=== PATIENT | female | born 1980 | race Asian ===

== ENCOUNTER 2016-03-19 07:34 | Inpatient (IN) | payer OTHER ==
[2016-03-19] MEDS ORDERED: Dinoprostone* 10 MG VAG.SUPP VAGINAL ONE (09:30)
[2016-03-19 10:55] LABS: Hematocrit 34 % (35-47); Hemoglobin 11.5 g/dl (12.0-16.0); Mean Corpuscular HGB Conc 34 g/dl (31-36); Mean Corpuscular Hemoglobin 33 pg (27-31); Mean Corpuscular Volume 96 fL (80-97); Mean Platelet Volume 8 um3 (7.4-10.4); Red Blood Count 3.55 10^6/ul (4.0-5.4); Red Cell Distribution Width 14 % (10.5-15); White Blood Count 6.1 10^3/ul (3.5-10.8)
[2016-03-19 11:31] LABS: Albumin 3.1 g/dL (3.2-5.2); BUN/Creatinine Ratio 19.1 (8-20); Calcium 9.1 mg/dL (8.6-10.3); EGFR African American 193.9 (>60); EGFR Non-African American 150.8 (>60); Globulin 2.6 g/dL (2-4); Potassium 3.8 mmol/L (3.5-5.0); Total Bilirubin 0.4 mg/dL (0.2-1.0); Total Protein 5.7 g/dL (6.4-8.9)
[2016-03-19] MEDS ORDERED: Insulin NPH(*) 1 UNITS UNIT SUBCUT SCH (21:00)
[2016-03-20] MEDS ORDERED: Misoprostol TAB* 100 MCG VAGINAL ONE (10:00)
[2016-03-20] MEDS ORDERED: Oxytocin in LR* 20 UNITS/1,000 ML BAG IVPB SCH (18:00)
[2016-03-21] MEDS ORDERED: Glycerin ADULT SUPP PR PRN (03:36)
[2016-03-21] MEDS ORDERED: Ammonia Inhalant* 1 EA AMP ONE (05:22)
[2016-03-21] MEDS: Ibuprofen TAB* 600 MG PO PRN ×3 (05:53→22:02)
[2016-03-21] MEDS: Witch Hazel PAD* JAR TOPICAL PRN (05:54)
[2016-03-21] MEDS: Dibucaine 1% 28.35 GM TUBE PR PRN (05:54)
[2016-03-21] MEDS: Docusate CAP* 100 MG PO SCH ×3 (09:25→22:02)
[2016-03-21] MEDS: Simethicone TAB* 80 MG TAB.CHEW PO SCH (15:45)
[2016-03-22 06:34] LABS: Hematocrit 29 % (35-47); Hemoglobin 9.8 g/dl (12.0-16.0); Mean Corpuscular HGB Conc 34 g/dl (31-36); Mean Corpuscular Hemoglobin 33 pg (27-31); Mean Corpuscular Volume 97 fL (80-97); Mean Platelet Volume 8 um3 (7.4-10.4); Red Blood Count 2.98 10^6/ul (4.0-5.4); Red Cell Distribution Width 14 % (10.5-15); White Blood Count 13.4 10^3/ul (3.5-10.8)
[2016-03-22] MEDS: Acetaminophen TAB* 325 MG PO PRN ×2 (08:04→19:53)
[2016-03-22] MEDS: Ferrous Gluconate TAB* 324 MG TAB PO SCH ×2 (08:04→19:53)
[2016-03-22] MEDS: Docusate CAP* 100 MG PO SCH ×3 (08:04→19:53)
[2016-03-22] MEDS: Ibuprofen TAB* 600 MG PO PRN ×2 (08:05→18:48)
--- NOTE | 2016-03-22 14:45 | PTEDU ---
Patient Name: TWYLA LOUISE TWYLA LOUISE selected video: BBOB: Nurturing Your Gorgeous \T\Growing Baby by to view on 03/22/2016 at 2:44:07 PM [id number]
--- NOTE | 2016-03-23 06:09 | PTEDU ---
Patient Name: TWYLA LOUISE DANITWYLA selected video: BBOB: Bonding Through Infant Massage to view on 03/23/2016 at 6:08:15 A [id number]
[2016-03-23 08:16] VITALS: BP 112/79
[2016-03-23] MEDS: Ferrous Gluconate TAB* 324 MG TAB PO SCH (08:21)
[2016-03-23] MEDS: Witch Hazel PAD* JAR TOPICAL PRN (08:21)
[2016-03-23] MEDS: Ibuprofen TAB* 600 MG PO PRN ×2 (08:21→14:52)
[2016-03-23] MEDS: Dibucaine 1% 28.35 GM TUBE PR PRN (08:21)
[2016-03-23] MEDS: Docusate CAP* 100 MG PO SCH ×2 (08:21→14:52)
--- NOTE | 2016-03-23 16:40 | PTEDU ---
Patient Name: TWYLA LOUISE DANITWYLA selected video: Follow Me Mum: The [facility] to Successful to view on 7 at 4:39:36 PM [id number]
--- NOTE | 2016-03-23 18:06 | PTEDU ---
Patient Name: TWYLA LOUISE DANITWYLA selected video: Follow Me Mum: The [facility] to Successful to view on 7 at 6:05:33 [id number]
== END 2016-03-23 17:22 | disposition home or self-care (01) | DRG 774 ==
LOC: MCHOBOUT 07:34 → MCHOB 09:07
PROVIDERS: ADMIT Obstetrics & Gynecology; ATTEND Obstetrics & Gynecology
PROC: 3E0P7GC Introduction of Other Therapeutic Substance into Female Reproductive, Via Natural or Artificial Opening (ICD-10-PCS; principal; 2016-03-19)
PROC: 4A1HXCZ Monitoring of Products of Conception, Cardiac Rate, External Approach (ICD-10-PCS; 2016-03-19)
PROC: 0U7C7ZZ Dilation of Cervix, Via Natural or Artificial Opening (ICD-10-PCS; 2016-03-19)
PROC: 3E033VJ Introduction of Other Hormone into Peripheral Vein, Percutaneous Approach (ICD-10-PCS; 2016-03-20)
PROC: 10E0XZZ Delivery of Products of Conception, External Approach (ICD-10-PCS; 2016-03-21)
PROC: 0KQM0ZZ Repair Perineum Muscle, Open Approach (ICD-10-PCS; 2016-03-21)
DX: O24.424 Gestational diabetes mellitus in childbirth, insulin controlled (principal); O10.92 Unspecified pre-existing hypertension complicating childbirth; D25.9 Leiomyoma of uterus, unspecified; Z3A.39 39 weeks gestation of pregnancy; Z37.0 Single live birth; O69.81X0 Labor and delivery complicated by cord around neck, without compression, not applicable or unspecified; O70.1 Second degree perineal laceration during delivery; O34.593 Maternal care for other abnormalities of gravid uterus, third trimester
CPT/HCPCS: 36415; 80053; 85025; 85027; 86850; 86900; 86901; A9270-GY; S0191

== ENCOUNTER 2018-07-19 09:41 | Inpatient (IN) | payer OTHER ==
[2018-07-19] MEDS ORDERED: Lactated Ringers 1000 ML Bag* 1,000 ML IV ONE (11:08)
[2018-07-19] MEDS ORDERED: Buffered Lidocaine 1% SYRIN* 1 ML/SYRINGE INTRADERM ONE (11:08)
[2018-07-19] MEDS ORDERED: Lactated Ringers 1000 ML Bag* 1,000 ML IV SCH ×2 (12:00→18:00)
--- NOTE | 2018-07-19 12:53 | HP ---
General Information - Reason for Visit Pt with GDMA2 on insulin (NPH at night) presents with SROM at 0800 this AM accompanied by bloody show. Active FMs. - General Information Maternal Age: 38 Grav: 4 Para: 1 SAB: 2 IEA: 0 Estimated Due Date: 07/27/18 Determined By: LMP Gestational Age in Weeks/Days: 38+6 wks Maternal Blood Type and Rh: A Positive - Results this Serology/RPR Result: Non-Reactive Rubella Result: Immune HBsAg Result: Negative HIV Result: Negative GBS Culture Result: Negative Past Medical History Delivery History: Hx Uncomplicated Vaginal Delivery Pertinent Past Medical History: See Records - HTN (not during ), depression/anxiety, migraine Pertinent Past Surgical History: See Records - hysteroscopy - Antepartal Records Antepartal Records: Reviewed, Complicated by: - GDMA2 Review of Systems Constitutional: Comfortable CV Complaint: No Respiratory: Shortness of Breath: No Gastrointestinal: No Nausea/Vomiting, Normal Bowel Movement Genitourinary: Bleeding, No Dysuria, No Leaking Fluid Musculoskeletal: Contractions Neurological: No Headache Movement: Normal Exam Allergies/Adverse Reactions: Allergies No Known Allergies Allergy (Verified 07/19/18 10:15) VS normal, afebrile Lab Values - Entire Visit: Laboratory Tests 07/19/18 09:55 Vag Amniotic Fld Detect Positive - Measurements Height: 5 ft 4 in Weight: 156 lb Weight in lbs: 156.892656 Body Mass Index (BMI): 26.7 Pre- Weight: 136 lb Weight Gained This : 20 lbs and 0 ozs - Exam Breast: Breast Exam Deferred Heart: Normal Rhythm/Heart Sounds HEENT: No Significant Findings Lungs: Clear Bilaterally Rectal: Rectal Exam Deferred - Abdominal Exam Abdomen Exam: Non-Tender, Fundal Height Consistent with Dates - Ultrasound/Biophysical Profile Ultrasound Status: Not Done Targeted Exam Findings Estimated Weight: 7lb 5oz Membrane Status: Leaking Amniotic Fluid Evaluation: Positive ROM Plus Bleeding/Discharge: Bloody Show EFM Findings - External Monitor Findings Baseline Heart Rate: 130 External Monitor Findings: Accelerations Present, No Pattern of Variable or Late Decelerations, Variability Moderate, Baseline Stable Contractions: Irregular - Q10 min, Mild Assessment/Plan - Assessment 38+6 with GDMA2 with SROM, early labor. Plan to monitor fingersticks periodically during labor, insulin as indicated. - Obstetrical Risk Factors Obstetrical Risk Factors: Gestational Diabetes - Plan Plan: Admit - Anticipate Vaginal Delivery - Date/Time of Admission Date of Admission: 07/19/18 Time of Admission: 11:00
[2018-07-19 15:19] LABS: ABS Basophils 0.1 10^3/ul (0-0.2); ABS Eosinophils 0.1 10^3/ul (0-0.6); ABS Lymphocytes 1.8 10^3/ul (1.0-4.8); ABS Monocytes 0.4 10^3/ul (0-0.8); ABS Neutrophils 6.6 10^3/ul (1.5-7.7); Eosinophil % 0.8 %; Hematocrit 38 % (35-47); Hemoglobin 12.9 g/dL (12.0-16.0); Lymphocyte % 19.8 %; Mean Corpuscular HGB Conc 34 g/dL (31-36); Mean Corpuscular Hemoglobin 32 pg (27-31); Mean Corpuscular Volume 93 fL (80-97); Mean Platelet Volume 8.1 fL (7.4-10.4); Platelet Count 201 10^3/uL (150-450); Red Blood Count 4.07 10^6 /uL (3.70-4.87); Red Cell Distribution Width 14 % (10.5-15)
[2018-07-19] MEDS ORDERED: Oxytocin in LR* 20 UNITS/1,000 ML BAG IVPB ONE (17:33)
[2018-07-19] MEDS ORDERED: Dibucaine 1% 28.35 GM TUBE PR PRN (17:56)
[2018-07-19] MEDS ORDERED: Acetaminophen TAB* 325 MG PO PRN (17:56)
[2018-07-19] MEDS ORDERED: Witch Hazel PAD* JAR TOPICAL PRN (17:56)
[2018-07-19] MEDS ORDERED: Oxytocin in LR* 20 UNITS/1,000 ML BAG IVPB SCH (18:00)
--- NOTE | 2018-07-19 18:01 | PROCNOTE ---
[facility] OB: Delivery Note - Delivery A Date of : 07/19/18 Time of : 17:30 Sex: Male Weight at : 7 lb 12 oz Score 1 Minute: 9 Score 5 Minutes: 9 Gestational Age in Weeks and Days at Delivery: 38 Weeks and 6 Days Delivery Method: Spontaneous Vaginal Labor: Spontaneous Amniotic Fluid: Bloody Estimated Blood Loss: 300 Anesthesia/Analgesia: Nitrous-Labor Delivered By: Zhou Juarez - Nursery Level of Nursery: Regular/Bedside - Perineum Perineal Injury: Perineal Laceration, 2nd Degree Perineal Repair: By Delivering Practioner - Events Delivery Events of Note: Pitocin Only After Delivery - Additional Delivery Notes Additional Delivery Notes: Pt with GDMA2 at 38+6 wks presented in early labor and SROM. Progressed well to about 5cm at which point she started receiving N2O. AROM of forebag at about 7-8cm. 20 min later, she began pushing. Pt pushed for 5 min to deliver head in a controlled fashion. Shoulders and body followed without difficulty. cried immediately, placed on mother's abdomen. Cord clamped after 2 min and cut. Intact placenta delivered spontaneously. 2nd degree perineal lac injected with 1% lidocaine and repaired with 3-0 Vicryl Rapide.
[2018-07-19] MEDS: Ibuprofen TAB* 600 MG PO PRN (18:19)
[2018-07-19] MEDS ORDERED: Simethicone TAB* 80 MG TAB.CHEW PO SCH (21:00)
[2018-07-19] MEDS: Docusate CAP* 100 MG PO SCH (22:21)
[2018-07-20] MEDS: Ibuprofen TAB* 600 MG PO PRN ×2 (00:36→16:19)
[2018-07-20 08:44] LABS: ABS Lymphocytes 1.9 10^3/ul (1.0-4.8); ABS Monocytes 0.5 10^3/ul (0-0.8); Eosinophil % 0.3 %; Hematocrit 36 % (35-47); Hemoglobin 12.1 g/dL (12.0-16.0); Lymphocyte % 18.3 %; Mean Corpuscular HGB Conc 34 g/dL (31-36); Mean Corpuscular Hemoglobin 32 pg (27-31); Mean Corpuscular Volume 93 fL (80-97); Mean Platelet Volume 7.7 fL (7.4-10.4); Platelet Count 186 10^3/uL (150-450); Red Blood Count 3.84 10^6 /uL (3.70-4.87); Red Cell Distribution Width 14 % (10.5-15); White Blood Count 10.6 10^3/uL (3.5-10.8)
[2018-07-20] MEDS: Docusate CAP* 100 MG PO SCH ×3 (09:22→20:40)
[2018-07-20] MEDS: Ferrous Gluconate TAB* 324 MG TAB PO SCH (22:33)
[2018-07-21] MEDS: Docusate CAP* 100 MG PO SCH (08:24)
[2018-07-21 08:32] VITALS: BP 115/80
== END 2018-07-21 12:11 | disposition home or self-care (01) | DRG 807 ==
LOC: MCHOBOUT 09:41 → MCHOB 10:45
PROVIDERS: ADMIT Obstetrics & Gynecology; ATTEND Obstetrics & Gynecology
PROC: 10E0XZZ Delivery of Products of Conception, External Approach (ICD-10-PCS; principal; 2018-07-19)
PROC: 0KQM0ZZ Repair Perineum Muscle, Open Approach (ICD-10-PCS; 2018-07-19)
PROC: 10907ZC Drainage of Amniotic Fluid, Therapeutic from Products of Conception, Via Natural or Artificial Opening (ICD-10-PCS; 2018-07-19)
DX: O24.424 Gestational diabetes mellitus in childbirth, insulin controlled (principal); Z37.0 Single live birth; O70.1 Second degree perineal laceration during delivery; Z3A.38 38 weeks gestation of pregnancy
CPT/HCPCS: 36415; 84112; 85025; 86850; 86900; 86901; A9270-GY